=== PATIENT | male | born 1990 | race African-American/Black ===

== ENCOUNTER 2019-09-30 23:39 | Emergency (ER) | payer SELFPAY ==
[~2019-09-30] VITALS: Ht 180.3 cm; Wt 97.7 kg
[~2019-09-30 23:39] MED LIST: LACRI-LUBE1 OI1 OP; NO HOME MEDICATIONS; PREDNISONE20 MG PO; VALTREX1 GM PO
[2019-09-30 23:46] VITALS: BP 125/84; TEMP 98
[2019-10-01] MEDS ORDERED: BACTRIM DS 8001 TAB PO (00:10)
[2019-10-01 00:26] VITALS: PULSE 75
== END 2019-10-01 00:26 | disposition home or self-care (01) ==
LOC: COL.ER 23:39
DX: R59.0 Localized enlarged lymph nodes (principal); F17.210 Nicotine dependence, cigarettes, uncomplicated

== ENCOUNTER 2020-06-26 20:47 | Emergency (ER) | payer SELFPAY ==
[~2020-06-26] VITALS: Ht 180.3 cm; Wt 98.6 kg
[~2020-06-26 20:47] MED LIST changes: +BACTRIM DS 8001 TAB PO
[2020-06-26 21:07] VITALS: BP 145/94; TEMP 97.6
[2020-06-26] MEDS ORDERED: CEPHALEXIN500 M1 PO (22:39)
[2020-06-26 22:54] VITALS: PULSE 76
== END 2020-06-26 22:54 | disposition home or self-care (01) ==
LOC: COL.ER 20:47
DX: S61.212A Laceration without foreign body of right middle finger without damage to nail, initial encounter (principal); W26.0XXA Contact with knife, initial encounter

== ENCOUNTER 2021-03-13 19:46 | Emergency (ER) | payer SELFPAY ==
[~2021-03-13] VITALS: Ht 180.3 cm; Wt 100.0 kg
[~2021-03-13 19:46] MED LIST changes: +CEPHALEXIN500 M1 PO
[2021-03-13] MEDS ORDERED: NAPROSYN500 MG PO (20:43)
[2021-03-13 23:25] VITALS: BP 136/80; PULSE 79; TEMP 97.9
== END 2021-03-13 23:25 | disposition home or self-care (01) ==
LOC: COL.ER 19:46
DX: S76.202A Unspecified injury of adductor muscle, fascia and tendon of left thigh, initial encounter (principal); F17.210 Nicotine dependence, cigarettes, uncomplicated; X58.XXXA Exposure to other specified factors, initial encounter

== ENCOUNTER 2021-03-16 20:03 | Emergency (ER) | payer BC ==
[~2021-03-16] VITALS: Ht 180.3 cm; Wt 100.0 kg
[~2021-03-16 20:03] MED LIST changes: +NAPROSYN500 MG PO
[2021-03-16] MEDS ORDERED: FLEXERIL 1010 MG/TAB PO (22:04)
[2021-03-16] MEDS ORDERED: VOLTAREN 50MG T50 MG PO (22:04)
[2021-03-16 22:22] VITALS: BP 132/89; PULSE 77; TEMP 98.7
== END 2021-03-16 22:22 | disposition home or self-care (01) ==
LOC: COL.ER 20:03
DX: M54.16 Radiculopathy, lumbar region (principal); F17.210 Nicotine dependence, cigarettes, uncomplicated
CPT/HCPCS: J1885